=== PATIENT | female | born 1990 | race Caucasian/White ===

== ENCOUNTER 2020-01-17 10:35 | Emergency (ER) | payer OTHER, SELFPAY ==
[2020-01-17 10:45] VITALS: BP 117/73; PULSE 91; RESP 20; TEMP 38; O2SAT 99
--- NOTE | 2020-01-17 11:52 | ED.URI ---
HPI - URI/Sore Throat General Chief Complaint: Upper Respiratory Infection Stated Complaint: Sore throat Source: patient Mode of arrival: ambulatory Limitations: no limitations History of Present Illness HPI Narrative: Patient is a 29-year-old female who presents with sore throat, fever, body aches x3 days. has positive strep. Patient reports taking rwus-iwj-wkhwpkk medications with limited relief. MD elicited complaint: fever and sore throat Related Data Allergies Allergy/AdvReac Type Severity Reaction Status Date / Time Sulfa (Sulfonamide Allergy Unknown Pruritic Verified 01/17/20 10:54 Antibiotics) rash adhesive AdvReac Intermediate Rash Verified 01/17/20 10:54 Review of Systems Review of Systems: Narrative: CONSTITUTIONAL: Denies fever, chills, or sweats. EYES: Denies visual changes, redness, or discharge. ENT: Denies rhinorrhea, congestion, reports sore throat and right otalgia. CARDIOVASCULAR: Denies chest pain, palpitations, or edema. RESPIRATORY: Denies cough or dyspnea. GASTROINTESTINAL: Denies abdominal pain, nausea, vomiting, or diarrhea. GENITOURINARY: Denies dysuria or hematuria. SKIN: Denies rash or itching. MUSCULOSKELETAL: Denies back pain, joint pain, or myalgia. NEUROLOGIC: Denies headache, numbness, dizziness, or weakness. PSYCHIATRIC: Denies anxiety or depression. [facility] Family History Family History Mother Family history of anemia Father Family history of colonic diverticulitis Other Acute myocardial infarction Carcinoma of colon Cerebrovascular accident Family history of lung cancer Family history of malignant neoplasm of brain Family history of malignant neoplasm of breast Family history of malignant neoplasm of cervix Family history of malignant neoplasm of ovary Social History Social History Smoking status: Former smoker Smoking end date: 11/10/17 Alcohol intake: current Exam Narrative: Exam Narrative: GENERAL: Well-appearing, well-nourished, and in no acute distress. HEAD: Normocephalic, atraumatic. EYES: EOMI. No redness or drainage. Conjunctiva are normal. ENT: Mucous membranes pink and moist. Nares clear. No rhinorrhea. TMs normal bilaterally. Throat erythema and edema, tonsils 2+. Uvula midline. NECK: AROM. Supple. Bilateral cervical lymphadenopathy. CHEST: No respiratory distress. Clear to auscultation. HEART: Regular rate and rhythm. No murmur appreciated. Normal peripheral pulses. EXTREMITIES: Normal range of motion. No edema. SKIN: Warm, dry, no rash. NEURO: No focal deficits. Alert and oriented x3. Gait steady. PSYCH: Normal affect. No signs of depression or anxiety. Course Vital Signs Vital signs: Vital Signs Temperature 38.0 C H 01/17/20 10:45 Pulse Rate 91 01/17/20 10:45 Respiratory Rate 01/17/20 10:45 Blood Pressure 117/73 01/17/20 10:45 Pulse Oximetry 99 01/17/20 10:45 Temperature 38.0 C H 01/17/20 10:45 Pulse Rate 91 01/17/20 10:45 Respiratory Rate 01/17/20 10:45 Blood Pressure 117/73 01/17/20 10:45 Pulse Oximetry 99 01/17/20 10:45 Reviewed. Rapid strep negative MDM - URI/Sore Throat MDM Narrative Medical decision making narrative: Patient's rapid strep was negative, culture to be sent. Discussed plan of care with patient. Patient to be treated with antibiotics due to tonsillitis. Patient aware of plan of care and agrees. Patient is stable for discharge home with outpatient follow-up as discussed. Differential Diagnosis Differential diagnosis: Likely upper respiratory infection, viral infection, pharyngitis and other (Tonsillitis, strep throat) Lab Data Labs: Strep Screen Presumptive Negative *(Reference Range: Negative)* Critical Care Time Critical Care Time Critical Care Time: No Discharge Plan Discharge Clinical Impression: Acute to
== END 2020-01-17 12:03 | disposition home or self-care (01) ==
LOC: EXPTROY 12:17
PROVIDERS: Emergency Provider Nurse Practitioner
DX: J03.90 Acute tonsillitis, unspecified (principal); Z87.891 Personal history of nicotine dependence
CPT/HCPCS: 87081; 87147; 87880; 99213; G0463

== ENCOUNTER 2021-03-16 14:34 | Outpatient (CLI) | payer OTHER, SELFPAY ==
[2021-03-16 14:56] LABS: Hematocrit 41.8 % (37.0-47.0); Hemoglobin 14.1 g/dL (12.0-15.0)
== END 2021-03-16 14:35 | disposition home or self-care (01) ==
LOC: ANHSURGERY 14:38
PROVIDERS: Anesthesiology; PCP Family Medicine; Visit Provider Otolaryngology
DX: Z01.818 Encounter for other preprocedural examination (principal); D64.9 Anemia, unspecified
CPT/HCPCS: 36415; 85014; 85018

== ENCOUNTER → 2021-03-17 02:08 | Outpatient (CLI) | payer OTHER, SELFPAY ==
[2021-03-18 14:52] LABS: SARS-CoV-2 RNA PCR Negative
== END ==
PROVIDERS: PCP Family Medicine; Visit Provider Otolaryngology
DX: Z01.812 Encounter for preprocedural laboratory examination (principal); Z20.822 Contact with and (suspected) exposure to COVID-19
CPT/HCPCS: C9803; U0003; U0005

== ENCOUNTER 2021-03-20 02:08 | Day surgery (SDC) | payer OTHER, SELFPAY ==
[2021-03-13 13:41] VITALS: BMI 40.5
--- NOTE | 2021-03-19 09:12 | PM.IMHP ---
H&P: HPI History of Present Illness Date/Time: 03/19/21 09:12 31-year-old female presents with a significantly firm an asymmetric right tonsil. We have tried antibiotics as well as steroids with no change. Patient's only symptom is mild pain. No other head neck cancer or cancer symptoms for that matter. She presents for tonsillectomy. Chief Complaint: Enlarged right tonsil, asymmetric tonsils, throat pain Review of Systems Constitutional: Constitutional: Denies fatigue, Denies fever(s) and Denies lethargy Eyes: Eyes: Denies blurry vision and Denies change in vision ENT: Reports as per HPI Cardiovascular: Cardiovascular: Denies chest pain Respiratory: Respiratory: Denies cough Endocrine: Endocrine: Denies fatigue Hematologic/Lymphatic: Hematologic/Lymphatic: Denies easy bleeding, Denies easy bruising and Denies lymphadenopathy Allergic/Immunologic: Allergic/Immunologic: Denies seasonal rhinorrhea [facility] Surgical History Surgical History Tubal ligation status Family History Family History Mother Family history of anemia Father Family history of colonic diverticulitis Other Acute myocardial infarction Carcinoma of colon Cerebrovascular accident Family history of lung cancer Family history of malignant neoplasm of brain Family history of malignant neoplasm of breast Family history of malignant neoplasm of cervix Family history of malignant neoplasm of ovary Social History Social History Social History: Smoking packs per day: 0.5 Smoking cigarettes per day: 10.0 Years smoked: 5 Smoking pack-years: 2.50 Smoking status: Current every day smoker Smoking end date: 11/10/17 Additional smoking assessment comments: CURRENTLY 1 CIG/MONTH Alcohol intake: current Drinks per week: 1 Substance use: never Substance use type: does not use Additional living arrangements comments: [facility] Gender identity (if verbalized by the patient): Female Spiritual care concerns: No Meds Home Medications and Allergies Home Medications Medication Instructions Recorded Confirmed Type cyclosporine 0.05 % eye drops in a 1 drp EACH EYE Q12H ea 01/29/21 03/13/21 History dropperette ferrous sulfate [iron] 325 mg PO DAILY 03/13/21 03/13/21 History cagemmdq-agkq-MJ-calcium-mins 1 tablet PO DAILY 03/13/21 03/13/21 History [Daily Multiple For Women] omega 0-hfb-iak-fish oil [Fish Oil] 1 cap PO BID 03/13/21 03/13/21 History potassium 95 mg PO DAILY 03/13/21 03/13/21 History Allergies Allergy/AdvReac Type Severity Reaction Status Date / Time Sulfa (Sulfonamide Allergy Severe Anaphylactic Verified 03/13/21 13:35 Antibiotics) Shock adhesive AdvReac Mild Rash Verified 03/13/21 13:35 Exam Const: General: cooperative, healthy appearing, comfortable, well developed and alert HENMT: Head: normal to inspection, normocephalic and atraumatic Ears: hearing grossly normal bilaterally, external ears normal, TM's normal bilaterally and EAC's normal General nose exam: Normal external nose present, Normal nares present, No nasal polyps present, Normal nasal mucous membranes and turbinates present and Normal septum present Face and sinus: normal facial exam Mouth: Yes Normal oral and palatal mucosa present, Yes lip normal, Yes tongue normal, Yes oropharynx normal and Yes moist mucous membranes Teeth and gingiva: dentition normal and gingiva normal Throat: posterior oropharynx normal, tonisls abnormal ( Right significantly firm enlarged erythematous edematous) and uvula midline Eyes: General: appearance normal, both eyes and all related structures Periorbital: periorbital findings normal Eyelids: eyelids normal Conjunctivae: conjunctivae normal Sclera: sclerae normal Neck: Neck: normal visual inspection, ful
--- NOTE | 2021-03-19 13:48 | WPDANESEPPF ---
Anes - Initial Pre Proc Eval Procedure: Operation Date: 03/20/21 10:00 Proposed Procedures p Tonsillectomy - Bert Tyson MD Date/Time: 03/19/21 13:48 Surgeon: Bert Tyson MD Pre Op Diagnosis: hypertrophic tonsils Patient Data Age: 31 Gender: F Height: 5 ft 6 in Weight: 114 kg Allergies Allergy/AdvReac Type Severity Reaction Status Date / Time Sulfa (Sulfonamide Allergy Severe Anaphylactic Verified 03/20/21 08:23 Antibiotics) Shock adhesive AdvReac Mild Rash Verified 03/20/21 08:23 Home Medications Medication Instructions Recorded Confirmed Type cyclosporine 0.05 % eye drops in a 1 drp EACH EYE Q12H ea 01/29/21 03/20/21 History dropperette ferrous sulfate [iron] 325 mg PO DAILY 03/13/21 03/20/21 History urnftbmg-plhp-LS-calcium-mins 1 tablet PO DAILY 03/13/21 03/20/21 History [Daily Multiple For Women] omega 1-bxc-tjz-fish oil [Fish Oil] 1 cap PO BID 03/13/21 03/20/21 History potassium 95 mg PO DAILY 03/13/21 03/20/21 History Patient hx anesthesia problems: none Family hx anesthesia problems: none PMFSH Past Medical History Medical History (Updated 03/20/21 @ 09:27 by Chris Medrano MD) Anxiety Morbid obesity Surgical History Surgical History Tubal ligation status Family History Family History Mother Family history of anemia Father Family history of colonic diverticulitis Other Acute myocardial infarction Carcinoma of colon Cerebrovascular accident Family history of lung cancer Family history of malignant neoplasm of brain Family history of malignant neoplasm of breast Family history of malignant neoplasm of cervix Family history of malignant neoplasm of ovary Social History Social History Social History: Smoking packs per day: 0.5 Smoking cigarettes per day: 10.0 Years smoked: 5 Smoking pack-years: 2.50 Smoking status: Current every day smoker Smoking end date: 11/10/17 Additional smoking assessment comments: CURRENTLY 1 CIG/MONTH Alcohol intake: current Drinks per week: 1 Substance use: never Substance use type: does not use Living arrangements: with family Additional living arrangements comments: [facility] Gender identity (if verbalized by the patient): Female Spiritual care concerns: No Anes - Eval Final PreProcedure Day of Procedure 03/19/21 13:48 Patient weight: morbidly obese Heart: regular rate and rhythm Lungs: clear to auscultation Airway: Mallampati scale class II Neurological: alert and oriented Last oral intake: >/= 8 hours ASA classification: III Emergent: no Anesthetic plan: proceed Anesthesia type and monitoring: general ETT and standard monitoring Informed Consent: The patient's anesthetic plan and its attendant risks and benefits were discussed with the patient/family/POA. Questions were solicited and answers provided to the satisfaction of the patient/family/POA.
[2021-03-20] VITALS (10 sets, daily range): BP systolic 104–133; BP diastolic 58–81; PULSE 60–91; RESP 12–19; TEMP 36.6; O2SAT 96–100
--- NOTE | 2021-03-20 07:17 | WPDHPUPDATE1 ---
History and Physical Update Update Date/Time: 03/20/21 07:17 History and Physical has been reviewed, including an updated exam of the patient. There are NO changes in the patient's condition. Risks, benefits, and alternatives have been discussed and questions answered. Patient agrees to proceed with procedure.
[2021-03-20] MEDS: LACTATED RINGERS 1,000 ML 30 ML IV CONT ×2 (08:13→11:10)
[2021-03-20] MEDS: ACETAMINOPHEN 500 MG TABLET 1000 MG PO (08:14)
--- NOTE | 2021-03-20 11:49 | PM.PROC ---
Procedure Note - Detailed Date of procedure: 03/20/21 Pre-op diagnosis: hypertrophic tonsils Asymmetric right tonsil Post-op diagnosis: same Procedure performed: Tonsillectomy Description of procedure: The patient was correctly identified and consent was verified in the preoperative holding area. The patient was then brought to the operating room and a time-out was performed. General anesthesia was induced and endotracheal tube was secured the patient's airway in the midline. Patient was then prepped and draped for the aforementioned procedure. McIvor mouth gag was inserted into the oral cavity and opened revealing tonsils which were asymmetric, with the right being much larger in firmer than the left. The right tonsil was grasped with a curved Allis and dissected in extracapsular plane. Hemostasis was achieved using the intermittent Bovie electrocautery suction at a setting of 15. Standard Bovie was utilized at a setting of 8 in the very low technique. Similar procedure was performed on the left side. Hemostasis was also excellent. Of note the patient had a right tonsil which was filled with tonsil stones as well as purulence. The McIvor mouth gag was then lowered and open 30 seconds later to reveal tonsil postoperative regions which were not bleeding. Care the patient was turned over to Anesthesiology. I performed all dictated portions of the procedure. Anesthesia: GETA Surgeon: Bert Tyson MD Estimated blood loss (mL): 20 Drains: No Packing: No Pathology: yes Complications: No immediate complications Condition: stable Disposition: PACU Findings: Asymmetric tonsils right greater than left right tonsil with tonsilliths as well as purulence
[2021-03-20] MEDS: fentaNYL CITRATE INJ (*CRX) 100 MCG/2 ML VIAL 25 MCG IV PUSH ×2 (12:05→12:07)
[2021-03-20] MEDS: oxyCODONE (*CRX) 5 MG/5 ML ORAL SOLN IR PO (12:37)
== END 2021-03-20 13:25 | disposition home or self-care (01) ==
PROVIDERS: PCP Family Medicine; Visit Provider Otolaryngology
PROC: (CPT 42826; principal; 2021-03-20 10:00)
DX: J35.01 Chronic tonsillitis (principal); E66.01 Morbid (severe) obesity due to excess calories; Z68.39 Body mass index [BMI] 39.0-39.9, adult; F17.210 Nicotine dependence, cigarettes, uncomplicated
CPT/HCPCS: 42826; 36415; 85014; 85018; 88304; 88333; A9270; C9803; J0330; J1100; J2250; J2405; J2704; J3010; J7120; U0003; U0005

== ENCOUNTER 2022-03-05 13:57 | Outpatient (CLI) | payer OTHER, SELFPAY ==
--- NOTE | ~2022-03-05 | US_ITS ---
EXAMINATION: US pelvic complete DATE: 03/05/2022 15:08 INDICATION: Oligomenorrhea, unspecified TECHNIQUE: Multiple transabdominal sonographic images of the pelvis were obtained. COMPARISON: None. FINDINGS: The uterus measures 8.7 x 4.0 x 3.3 cm. The endometrial complex measures 5 mm. The right ov byron measures 4.3 x 3.8 x 3.1 cm. The left ovary measures 3.5 x 3.5 x 2.7 cm. There is normal vascular flow in the ovaries. There is no free fluid in the pelvis. IMPRESSION: 1. No sonographic correlate for the patient's symptoms. Reviewed, dictated and finalized at location F.
== END 2022-03-05 13:58 | disposition home or self-care (01) ==
LOC: ANHIMG 14:01
PROVIDERS: PCP Family Medicine; Visit Provider Family Medicine
DX: N91.5 Oligomenorrhea, unspecified (principal)
CPT/HCPCS: 76856

== ENCOUNTER 2022-06-12 11:17 | Day surgery (SDC) | payer OTHER, SELFPAY ==
[2022-06-12] VITALS (11 sets, daily range): BP systolic 113–139; BP diastolic 66–81; PULSE 46–56; RESP 12–20; TEMP 36.2–36.3; O2SAT 95–100
--- NOTE | ~2022-06-12 | XR_ITS ---
EXAMINATION: XR cholangiogram surg 1st inj DATE: 06/12/2022 15:30 CDT INDICATION: IOC, stones . TECHNIQUE: 66 fluoroscopic images of the right upper quadrant were obtained during intraoperative cho langiogram performed by the surgeon. I was not present in the operating room. Fluoroscopy exposure ti me was 48.9 seconds. Cumulative dose was 29.61 mGy. COMPARISON: Ultrasound abdomen, same date. FINDINGS: Cine images demonstrate filling of normal-appearing intra and extrahepatic biliary ducts. Mild contra st extravasation about the free edge of the liver. Small gas bubble within the cystic duct. No residu al stone. No evidence of procedure related complication. IMPRESSION: Fluoroscopic documentation of intraoperative cholangiogram. Verbal report given at the time of surger y. Please refer to the operative note for complete procedural details . Reviewed, dictated and finalized at location K. IMPRESSION: Fluoroscopic documentation of intraoperative cholangiogram. Verbal report given at the time of surgery. Please refer to the operative note for complete proced ural details .
--- NOTE | ~2022-06-12 | US_ITS ---
EXAMINATION: US abdomen limited DATE: 06/12/2022 13:17 INDICATION: Abdominal pain TECHNIQUE: Multiple grayscale and Doppler ultrasound images of the abdomen were obtained. COMPARISON: None FINDINGS: The pancreatic head and body are normal in appearance. The pancreatic tail is not visualized. Visual ized proximal abdominal aorta and inferior vena cava are normal. Liver has normal contour, with a smo oth surface. There is increased parenchymal echogenicity and coarsened echotexture consistent with di ffuse hepatic steatosis. Small region of hypoechoic focal fatty sparing along the gallbladder fossa. No intrahepatic biliary duct dilation suspected. Portal venous flow was seen in the hepatopetal, nor mal direction and has normal Doppler waveform. The gallbladder is normal in appearance. There is no cholelithiasis. The common bile duct measures 7 mm, which is mild dilated. The distal common bile kolby t is obscured. Sonographic Mendoza sign was reported as positive by the principal electrical engineer. IMPRESSION: 1. Positive sonographic Mendoza sign but with normal-appearing gallbladder with no wall thickening or evident cholelithiasis. If there is high clinical concern for acute cholecystitis could consider HIDA scan for further evaluation. 2. Mild dilation of the common bile duct to 7 mm without intrahepatic biliary ductal dilation. The di stal common bile duct is obscured and would correlate with liver function tests. If findings are conc erning for biliary obstruction would consider MRI/MRCP for further evaluation. 3. Diffuse hepatic steatosis with focal sparing along the gallbladder fossa. Reviewed, dictated and finalized at location A. IMPRESSION: 1. Positive sonographic Mendoza sign but with normal-appearing gallbladder with no wall thickening or evident cholelithiasis. If there is high clinical concern for acute cholecystitis could consider HIDA scan for further evaluation. 2. Mild dilation of the common bile duct to 7 mm without intrahepatic biliary d uctal dilation. The distal common bile duct is obscured and would correlate wit h liver function tests. If findings are concerning for biliary obstruction woul d consider MRI/MRCP for further evaluation. 3. Diffuse hepatic steatosis with focal sparing along the gallbladder fossa.
[2022-06-12 11:59] LABS: Basophils Percent Auto 0.5 % (0.2-1.2); Eosinophils Absolute Auto 0.1 K/mm3 (0-0.3); Eosinophils Percent Auto 1.3 % (0-4.4); Hematocrit 42.5 % (37.0-47.0); Hemoglobin 14.5 g/dL (12.0-15.0); Immature Granulocyte Absolute 0.02 K/mm3 (0.00-0.031); Immature Granulocyte Percent A 0.3 % (0-0.5); Lymphocytes Absolute Auto 1.84 K/mm3 (0.9-3.2); Lymphocytes Percent Auto 24.4 % (18.3-44.2); Mean Corpuscular HGB Conc 34.1 g/dl (32-36); Mean Corpuscular Hemoglobin 28.9 pg (26-34); Mean Corpuscular Volume 84.8 fl (80-100); Monocytes Absolute Auto 0.5 K/mm3 (0.1-0.6); Monocytes Percent Auto 6.5 % (2.6-8.5); Platelet Count Result 268 k/mm3 (150-375); Red Blood Count 5.01 M/mm3 (4.2-5.4); Red Cell Distribution Width 12.4 % (11.5-14.5); White Blood Count 7.5 K/mm3 (4.5-10.0)
[2022-06-12 12:12] LABS: Alanine Aminotransferase 467 U/L (6-35); Albumin Level 4.8 g/dL (3.5-5.1); Alkaline Phosphatase 128 U/L (38-126); Anion Gap 12 mmol/L (8-16); Aspartate Amino Transferase 513 U/L (14-36); Bilirubin,Total 2.6 mg/dL (0.2-1.3); Blood Urea Nitrogen 14 mg/dL (7-17); Calcium 9.3 mg/dL (8.4-10.2); Carbon Dioxide 23 mmol/L (22-30); Chloride 103 mmol/L (98-107); Estimated CRCL calculation 113 ml/min; Estimated Glomerular Filt Rate > 60; Glucose 116 mg/dL (65-110); Lipase 95 U/L (23-300); Potassium 3.6 mmol/L (3.4-5.0); Sodium 138 mmol/L (137-145)
[2022-06-12] MEDS: SODIUM CHLORIDE 0.9% IV 1,000 ML 999 ML IV CONT (13:14)
[2022-06-12] MEDS: KETOROLAC 30 MG/ML VIAL (*BKC) IV PUSH (13:14)
--- NOTE | 2022-06-12 13:30 | ED.ABDPAIN ---
HPI - Abdominal Pain General Chief Complaint: Abdominal Pain Stated Complaint: abd pain Time Seen by Provider: 06/12/22 11:37 Source: RN notes reviewed History of Present Illness HPI narrative: Patient presents emergency department from home for abdominal pain. Patient states pain is been ongoing for approximately 1 day. The pain is located in the upper abdomen and in the right side of the abdomen described as aching in nature states has been associated with nausea and vomiting but states no nausea at this time. She denies any fevers or chills chest pain shortness of breath diarrhea or any other symptoms states she not taking thing for the pain today the patient was seen by her PCP and was sent to the ER for further Related Data Home Medications Medication Instructions Recorded Confirmed cyclosporine 0.05 % eye drops in a 1 drp EACH EYE Q12H 01/29/21 06/12/22 dropperette (Restasis) multivit-iron 18 mg-folic acid 400 1 tablet PO DAILY 03/13/21 06/12/22 mcg-calcium 500 mg-minerals tablet (Daily Multiple For Women) omega 1-zqi-lhl-fish oil 1,200 mg 1 cap PO BID 03/13/21 06/12/22 (144 mg-216 mg) capsule (Fish Oil) potassium 95 mg tablet 95 mg PO DAILY 03/13/21 06/12/22 Allergies Allergy/AdvReac Type Severity Reaction Status Date / Time Sulfa (Sulfonamide Allergy Severe Anaphylactic Verified 06/12/22 10:39 Antibiotics) Shock adhesive AdvReac Mild Rash Verified 06/12/22 10:39 Review of Systems Review of Systems: Gen.: Denies fevers or chills ENT: Denies congestion Respiratory: Denies shortness of breath or cough CV: Denies chest pain or palpitations GI: See HPI Musculoskeletal: Denies back pain or muscle pain Neuro: Denies numbness, tingling, weakness or focal weakness Skin: Denies rash Except as documented, all other systems reviewed and negative [facility] Past Medical History Medical History Anxiety Morbid obesity Surgical History Surgical History S/P tonsillectomy 0 03/2021 Tubal ligation status Family History Family History Mother Family history of anemia Father Family history of colonic diverticulitis Other Acute myocardial infarction Carcinoma of colon Cerebrovascular accident Family history of lung cancer Family history of malignant neoplasm of brain Family history of malignant neoplasm of breast Family history of malignant neoplasm of cervix Family history of malignant neoplasm of ovary Social History Social History Social History: Years smoked: 5 Smoking status: Former smoker Tobacco type: cigarettes Second hand tobacco smoke exposure: No Smoking end date: 11/10/17 Additional smoking assessment comments: CURRENTLY 1-2 CIG/MONTH Alcohol intake: current Alcohol use details: Socially Substance use: never Substance use type: does not use Gender identity (if verbalized by the patient): Female Sexual Orientation (if Verbalized by the Patient): Straight or Heterosexual Spiritual care concerns: No Exam Narrative: APPEARANCE: No acute distress, nontoxic, resting in bed HEENT: Normocephalic, atraumatic, OMM RESPIRATORY: No respiratory distress, clear to auscultation bilaterally with no rhonchi wheezing or rales CARDIOVASCULAR: RRR s murmur ABDOMINAL: Soft nondistended tender palpation in epigastric and right upper quadrant no tenderness left upper quadrant, left lower quadrant and right lower quadrant no rebound or guarding MUSCULOSKELETAl: Moves all extremities. No clubbing, cyanosis or edema. NEURO: Awake and alert. Following commands, speech normal, no focal deficits SKIN:: Warm, dry. Normal Color PSYCHIATRIC: Normal affect/mood Course Course Emergency Course: Discussed with Dr. Zelaya presentation work-up we will plan
--- NOTE | 2022-06-12 14:39 | WPDANESEPPF ---
Anes - Initial Pre Proc Eval Procedure: Operation Date: 06/12/22 15:00 Proposed Procedures p Laparoscopic Cholecystectomy - Edgardo Zelaya MD Date/Time: 06/12/22 14:39 Surgeon: Edgardo Zelaya MD Pre Op Diagnosis: abd pain Patient Data Age: 32 Gender: F Height: 1.68 m Weight: 113.4 kg Allergies Allergy/AdvReac Type Severity Reaction Status Date / Time Sulfa (Sulfonamide Allergy Severe Anaphylactic Verified 06/12/22 10:39 Antibiotics) Shock adhesive AdvReac Mild Rash Verified 06/12/22 10:39 Home Medications Medication Instructions Recorded Confirmed Type cyclosporine 0.05 % eye drops in a 1 drp EACH EYE Q12H 01/29/21 06/12/22 History dropperette (Restasis) multivit-iron 18 mg-folic acid 400 1 tablet PO DAILY 03/13/21 06/12/22 History mcg-calcium 500 mg-minerals tablet (Daily Multiple For Women) omega 4-ryk-wfv-fish oil 1,200 mg 1 cap PO BID 03/13/21 06/12/22 History (144 mg-216 mg) capsule (Fish Oil) potassium 95 mg tablet 95 mg PO DAILY 03/13/21 06/12/22 History triamcinolone acetonide 0.1 % 1 applic topical BID #30 grams 02/14/22 06/12/22 Rx topical cream Laboratory Tests 06/12/22 06/12/22 11:51 11:51 WBC 7.5 K/mm3 K/mm3 (4.5-10.0) RBC 5.01 M/mm3 M/mm3 (4.2-5.4) Hgb 14.5 g/dL g/dL (12.0-15.0) Hct 42.5 % % (37.0-47.0) MCV 84.8 fl fl (80-100) MCH 28.9 pg pg (26-34) MCHC 34.1 g/dl g/dl (32-36) RDW 12.4 % % (11.5-14.5) Plt Count 268 k/mm3 k/mm3 (150-375) MPV 9.0 fl fl (7.4-10.4) Immature Gran % (Auto) 0.3 % % (0-0.5) Neut % (Auto) 67.0 % % (45.5-73.1) Lymph % (Auto) 24.4 % % (18.3-44.2) [place] % (Auto) 6.5 % % (2.6-8.5) Eos % (Auto) 1.3 % % (0-4.4) Baso % (Auto) 0.5 % % (0.2-1.2) Lymph # (Auto) 1.84 K/mm3 K/mm3 (0.9-3.2) [place] # (Auto) 0.5 K/mm3 K/mm3 (0.1-0.6) Eos # (Auto) 0.1 K/mm3 K/mm3 (0-0.3) Baso # (Auto) 0.0 K/mm3 K/mm3 (0.0-0.1) Abs Immat Gran (auto) 0.02 K/mm3 K/mm3 (0.00-0.031) Absolute Neuts (auto) 5.0 K/mm3 K/mm3 (1.3-6.7) Absolute Nucleated RBC 0.0 K/mm3 K/mm3 (0.0-0.012) Nucleated RBC % 0.0 % % (0.0-0.2) Sodium 138 mmol/L mmol/L (137-145) Potassium 3.6 mmol/L mmol/L (3.4-5.0) Chloride 103 mmol/L mmol/L (98-107) Carbon Dioxide 23 mmol/L mmol/L (22-30) Anion Gap 12 mmol/L mmol/L (8-16) BUN 14 mg/dL mg/dL (7-17) Creatinine 0.80 mg/dL mg/dL (0.7-1.0) Estim Creat Clear Calc 113 ml/min ml/min Estimated GFR > 60 (59 - ) Glucose 116 mg/dL H mg/dL (65-110) Calcium 9.3 mg/dL mg/dL (8.4-10.2) Total Bilirubin 2.6 mg/dL H mg/dL (0.2-1.3) AST 513 U/L H U/L (14-36) ALT 467 U/L H U/L (6-35) Alkaline Phosphatase 128 U/L H U/L (38-126) Total Protein 8.0 g/dL g/dL (6.3-8.2) Albumin 4.8 g/dL g/dL (3.5-5.1) Lipase 95 U/L U/L (23-300) Patient hx anesthesia problems: none Family hx anesthesia problems: none Results Review: All pre-operative results and documents have been reviewed as part of the pre-operative evaluation. [facility] Past Medical History Medical History Anxiety Morbid obesity Surgical History Surgical History S/P tonsillectomy 0 03/2021 Tubal ligation status Family History Family History Mother Family history of anemia Father Family history of colonic diverticulitis Other Acute myocardial infarction Carcinoma of colon Cerebrovascular accident Family history of lung cancer Family history of malignant neoplasm of brain Family history of malignant neoplasm of breast Family history of malignant neoplasm of cervix
--- NOTE | 2022-06-12 14:41 | PM.IMHP ---
H&P: HPI History of Present Illness Date/Time: 06/12/22 14:41 Chief Complaint: Right upper quadrant pain Narrative: Patient is a 32-year-old woman who has had severe right upper quadrant abdominal pain. This came on after eating an omelet. She has also had several episodes of vomiting. She was seen in her primary care provider's office and found to have tenderness in severe pain. She was sent to the emergency room. In the emergency room she was noted to have tenderness in the right upper quadrant and a normal white count. However her liver enzymes were diffusely elevated. Serum lipase was normal. She had an ultrasound of the right upper quadrant which showed a 7 mm common bile duct gallstones and a positive Mendoza sign. She is taken to surgery now for laparoscopic cholecystectomy with intraoperative cholangiogram. Review of Systems Review of Systems: All systems reviewed & are unremarkable except as noted in HPI and below (HPI and those items noted below) Constitutional: Constitutional: Denies chills and Denies fever(s) Cardiovascular: Cardiovascular: Denies chest pain, Denies diaphoresis, Denies dyspnea and Denies paroxysmal nocturnal dyspnea Respiratory: Respiratory: Denies chest congestion, Denies cough and Denies dyspnea Integumentary/Breasts: Skin/Breast: Denies lesions and Denies rash PMFSH Past Medical History Medical History Anxiety Morbid obesity Surgical History Surgical History S/P tonsillectomy 0 03/2021 Tubal ligation status Family History Family History Mother Family history of anemia Father Family history of colonic diverticulitis Other Acute myocardial infarction Carcinoma of colon Cerebrovascular accident Family history of lung cancer Family history of malignant neoplasm of brain Family history of malignant neoplasm of breast Family history of malignant neoplasm of cervix Family history of malignant neoplasm of ovary Social History Social History Social History: Years smoked: 5 Smoking status: Former smoker Tobacco type: cigarettes Second hand tobacco smoke exposure: No Smoking end date: 11/10/17 Additional smoking assessment comments: CURRENTLY 1-2 CIG/MONTH Alcohol intake: current Alcohol use details: Socially Substance use: never Substance use type: does not use Gender identity (if verbalized by the patient): Female Sexual Orientation (if Verbalized by the Patient): Straight or Heterosexual Spiritual care concerns: No Meds Home Medications and Allergies Home Medications Medication Instructions Recorded Confirmed Type No Home Medications 06/12/22 06/12/22 History Allergies Allergy/AdvReac Type Severity Reaction Status Date / Time Sulfa (Sulfonamide Allergy Severe Anaphylactic Verified 06/12/22 14:57 Antibiotics) Shock adhesive AdvReac Mild Rash Verified 06/12/22 14:57 Exam Const: General: cooperative, no acute distress, alert, awake, anxious and uncomfortable Nutritional Appearance: obese Orientation/consciousness: No confusion HENMT: Head: normocephalic and atraumatic Mouth: Yes Normal oral and palatal mucosa present Eyes: Conjunctivae: conjunctivae normal Pupils: Equal, round and reactive pupils present EOM: EOMs intact bilaterally Neck: Neck: normal visual inspection, no lymphadenopathy and nontender Resp: Effort & Inspection: normal respiratory effort Auscultation: clear to auscultation bilaterally Cardio: Rate: regular rate Rhythm: regular rhythm Heart sounds: no gallops, no murmurs and no rubs GI: Inspection: non-distended, obesity and no visible herniation GI Palp: Yes Soft to palpation, Yes Tenderness to palpation present (GI) (Right upper quadrant with guarding), Yes Guarding
[2022-06-12] MEDS: LACTATED RINGERS 1,000 ML 30 ML IV CONT ×2 (14:45→17:47)
[2022-06-12] MEDS: SCOPOLAMINE 1.5 MG PATCH TRANSDERM (15:09)
--- NOTE | 2022-06-12 15:21 | WPDHPUPDATE1 ---
History and Physical Update Update Date/Time: 06/12/22 15:21 History and Physical has been reviewed, including an updated exam of the patient. There are NO changes in the patient's condition. Risks, benefits, and alternatives have been discussed and questions answered. Patient agrees to proceed with procedure.
[2022-06-12] MEDS: BUPIVACAINE/EPINEPHRINE 0.25% 50 ML VIAL INFILTRATE (16:08)
--- NOTE | 2022-06-12 16:46 | P.OP_ITS ---
Procedure Note - Detailed Date of Procedure 06/12/22 Pre-op Diagnosis Cholelithiasis with acute cholecystitis, abnormal LFTs Post-op Diagnosis Same Procedure Performed Laparoscopic cholecystectomy with intraoperative cholangiogram Surgeon Edgardo Zelaya MD Coverage Specialist Tiff GERMAIN Anesthesia General and Local (0.25% bupivacaine with epinephrine) Indications Patient is a 32-year-old woman who developed severe right upper quadrant abdominal pain after eating an omelet yesterday. The pain has been persistent. She came to the emergency room and was noted to have tenderness in the right upper quadrant. Her liver enzymes were elevated and lipase was normal. Her white blood cell count was normal. Ultrasound showed gallstones and a positive sonographic Mendoza sign. Common bile duct was 7 mm in diameter. Patient is taken to surgery now for laparoscopic cholecystectomy for acute cholecystitis. The abnormal LFTs are likely due to the cholecystitis but intraoperative cholangiogram will be performed. Findings Acute inflammation, numerous gallstones. No liver abnormalities. No biliary ductal dilatation. Intraoperative cholangiogram was negative. Description of Procedure The patient was taken to surgery and induced into general anesthesia. The abdomen is prepped and draped. Trocars were placed in usual fashion using applied Medical optical trocars and local anesthetic. The gallbladder was freed from adhesions. A laparoscopic aspirator was then used and the gallbladder was decompressed. A Vicryl endoloop was used to close the cholecystotomy. The gallbladder was then retracted anterosuperiorly. Traction was placed on the infundibulum. Dissection was carried out in the cholecystohepatic triangle. There was a lot of edema and hypervascularity consistent with acute inflammation. The cystic duct and cystic artery were dissected out very clearly. The gallbladder was dissected off the liver at its lower 3rd. Critical view was achieved. I securely clipped and divided the cystic artery. A clip was placed on the proximal cystic duct. The cystic duct scissors were then used to make a small opening in the proximal cystic duct. Cholangiogram catheter was then threaded into the cystic duct. C-arm fluoroscopy was brought into the field. Cine fluoroscopy was used and cholangiogram was performed. Cholangiogram was negative as noted above. The cystic duct was then clipped and divided. We dissected the gallbladder free of its attachments to the liver. Once it was completely freed, it was placed in an Endo-Catch bag. It was extricated from the abdomen through the epigastric trocar site. We then replaced the epigastric trocar and reviewed the right upper quadrant. There was no evidence of bleeding or bile leakage. We evacuated CO2 and removed the trocar sleeves. Skin wounds were closed with subcuticular 4-0 Monocryl skin suture. The wounds were dressed with Exofin surgical adhesive. Patient was awakened and taken to recovery in good condition. Sponge needle counts were correct x2. Estimated Blood Loss -5 Drains No Packing No Pathology Yes (Gallbladder) Complications No immediate complications Condition Stable Disposition PACU [facility] Billing Surgery - Charge Forward: Surgery Billing (Laparoscopic cholecystectomy with intraoperative cholangiogram)
--- NOTE | 2022-06-12 16:52 | PM.DS ---
DS: Admitting Diagnosis Discharge Date 06/12/2022 Admitting Diagnosis Cholelithiasis with acute cholecystitis Abnormal liver function tests DS: Discharge Diagnosis Discharge Diagnosis (1) Cholelithiasis and acute cholecystitis with obstruction: Code(s): K80.01 - Calculus of gallbladder with acute cholecystitis with obstruction Status: Acute (2) Elevated LFTs: Code(s): R79.89 - Other specified abnormal findings of blood chemistry Status: Acute DS: Summary Hospital Course Hospital Course: Patient came to the emergency room with right upper quadrant abdominal pain and tenderness. Ultrasound showed gallstones and positive Mendoza sign. Her LFTs were elevated. She was taken to surgery and underwent laparoscopic cholecystectomy with intraoperative cholangiogram. The cholangiogram was negative for any common bile duct stones. The abnormal LFTs are felt to be due to the cholecystitis. Laparoscopic cholecystectomy was completed without difficulty. Patient was able to be discharged after appeared of observation. Status at Discharge Functional status at discharge: independent ambulation Overall status at discharge: patient is progressing back to baseline Time Spent with Patient Time attestation: Total time spent providing and/or coordinating discharge services: Time spent: Less than 30 minutes DS: Data Data Completed and Pending Pending studies at discharge: Pending at discharge 06/12/22 16:26 Surgical [PTH] Routine Labs on day of discharge: Labs from last 24 hours 06/12/22 06/12/22 11:51 11:51 WBC 7.5 RBC 5.01 Hgb 14.5 Hct 42.5 MCV 84.8 MCH 28.9 MCHC 34.1 RDW 12.4 Plt Count 268 MPV 9.0 Immature Gran % (Auto) 0.3 Neut % (Auto) 67.0 Lymph % (Auto) 24.4 [place] % (Auto) 6.5 Eos % (Auto) 1.3 Baso % (Auto) 0.5 Lymph # (Auto) 1.84 [place] # (Auto) 0.5 Eos # (Auto) 0.1 Baso # (Auto) 0.0 Abs Immat Gran (auto) 0.02 Absolute Neuts (auto) 5.0 Absolute Nucleated RBC 0.0 Nucleated RBC % 0.0 Sodium 138 Potassium 3.6 Chloride 103 Carbon Dioxide 23 Anion Gap 12 BUN 14 Creatinine 0.80 Estim Creat Clear Calc 113 Estimated GFR > 60 Glucose 116 H Calcium 9.3 Total Bilirubin 2.6 H AST 513 H ALT 467 H Alkaline Phosphatase 128 H Total Protein 8.0 Albumin 4.8 Lipase 95 Discharge Plan Discharge Patient Disposition: Home, Self-Care Discharge Instructions: 1. May shower the day after surgery over incisions. 2. Call office for: -Wound increasingly painful or bleeding -Vomiting -Fever of greater than 101 degrees 3. Expect some blood on dressing and old blood on skin. 4. If no bowel movement for three days, take 1 oz. (30 ml) Milk of Magnesia, if no results, take Fleets enema. 5. No heavy lifting > 15-20 pounds for 2 weeks. 6. No driving for 3 days or while taking narcotic pain medications. 7. Up walking 10-30 minutes three times per day. 8. Resume previous home medications. 9. Follow-up 10-14 days in office for wound check or as previously scheduled. 10. Oral pain medications prescription to be sent home with patient. 11. NUTRITION: Start out by drinking fluids and increase your diet as tolerated. If you experience nausea, try dry toast, crackers, and 7-UP. If nausea or vomiting persists, contact your surgeon?s office. Patient Instructions: Antibiotic Form Stand Alone Forms: General Discharge Instructions Follow-up/Referrals: Edgardo Zelaya MD [Physician] - 2 Weeks (Call Dr. Rosario office for appointment) Discharge Medications: New hydrocodone-acetaminophen 5-325 mg tablet 1 - 2 tablet PO Q6H PRN (Reason: pain) Qty: 10 0RF ketorolac 10 mg tablet 10 mg PO Q6H 4 Days Qty: 16 0RF
[2022-06-12] MEDS: ONDANSETRON INJ 4 MG/2 ML VIAL IV PUSH (17:06)
[2022-06-12] MEDS: diphenhydrAMINE HCl INJ 50 MG/ML VIAL 25 MG IV PUSH (17:31)
--- NOTE | 2022-06-12 17:37 | SUR.PHASEI ---
Simple mask removed at [id number].
[2022-06-12] MEDS: fentaNYL CITRATE INJ (*CRX) 100 MCG/2 ML VIAL 25 MCG IV PUSH (17:54)
== END 2022-06-12 19:48 | disposition home or self-care (01) ==
LOC: ANHED 14:19 → ANHSURGERY 14:30
PROVIDERS: Physician Assistant; Emergency Provider Emergency Medicine; PCP Family Medicine; Visit Provider Surgery
PROC: 0FT44ZZ Resection of Gallbladder, Percutaneous Endoscopic Approach (ICD-10-PCS; CPT 47562; principal; 2022-06-12 15:00)
DX: K80.10 Calculus of gallbladder with chronic cholecystitis without obstruction (principal); R79.89 Other specified abnormal findings of blood chemistry; E66.01 Morbid (severe) obesity due to excess calories; Z68.41 Body mass index [BMI] 40.0-44.9, adult; F17.210 Nicotine dependence, cigarettes, uncomplicated
CPT/HCPCS: 47563; 36415; 74300; 76705; 80053; 81025; 83690; 85025; 88304; 96361; 96374; 96375; 99285; A9270; C1713; J0330; J1100; J1170; J1200; J1885; J2250; J2405; J2543; J2704; J3010; J7030; J7120

== ENCOUNTER 2024-04-02 14:06 | Emergency (ER) | payer OTHER, SELFPAY ==
[2024-04-02 14:18] VITALS: BP 107/91; PULSE 88; RESP 16; TEMP 36.3; O2SAT 99
--- NOTE | 2024-04-02 14:36 | ED.URI ---
HPI - URI/Sore Throat General Chief Complaint: Upper Respiratory Infection Stated Complaint: Cold symptoms Time Seen by Provider: 04/02/24 14:25 Source: patient and RN notes reviewed Mode of arrival: ambulatory Limitations: no limitations History of Present Illness HPI Narrative: Patient presents today with a 4 day history of sinus pressure, facial pressure, cough, sore throat, congestion. Denies fever. She has been taking Benadryl, DayQuil, NyQuil with mild relief. No history of asthma or COPD. Related Data Home Medications Medication Instructions Recorded Confirmed escitalopram oxalate 10 mg tablet mg 04/02/24 Allergies Allergy/AdvReac Type Severity Reaction Status Date / Time Sulfa (Sulfonamide Allergy Severe Anaphylactic Verified 10/24/23 09:06 Antibiotics) Shock adhesive AdvReac Mild Rash Verified 10/24/23 09:06 Review of Systems Review of Systems: CONSTITUTIONAL: Denies body aches, fever, chills, or sweats. EYES: Denies visual changes, redness, or discharge. ENT: Denies rhinorrhea, or otalgia.+ congestion, sore throat, sinus pressure CARDIOVASCULAR: Denies chest pain, palpitations, or edema. RESPIRATORY: Denies dyspnea.+ cough GASTROINTESTINAL: Denies abdominal pain, nausea, vomiting, or diarrhea. GENITOURINARY: Denies dysuria or hematuria. SKIN: Denies rash, itching, or wounds. MUSCULOSKELETAL: Denies back pain, joint pain, or myalgia. NEUROLOGIC: Denies headache, numbness, tingling, or weakness. PSYCH: Denies depression or anxiety. [facility] Past Medical History Medical History Anxiety Morbid obesity Surgical History Surgical History Hx laparoscopic cholecystectomy Laparoscopic cholecystectomy with intraoperative cholangiogram 06/12/2022 S/P tonsillectomy 0 03/2021 Tubal ligation status Family History Family History Mother Family history of anemia Father Family history of colonic diverticulitis Other Acute myocardial infarction Carcinoma of colon Cerebrovascular accident Family history of lung cancer Family history of malignant neoplasm of brain Family history of malignant neoplasm of breast Family history of malignant neoplasm of cervix Family history of malignant neoplasm of ovary Social History Social History Social History: Years smoked: 5 Smoking status: Former smoker Tobacco type: cigarettes Second hand tobacco smoke exposure: No Smoking end date: 11/10/17 Additional smoking assessment comments: CURRENTLY 1-2 CIG/MONTH Alcohol intake: current Alcohol use details: Socially Substance use: never Substance use type: does not use Living arrangements: with family Occupation/Education: occupation Gender identity (if verbalized by the patient): Female Sexual Orientation (if Verbalized by the Patient): Straight or Heterosexual Spiritual care concerns: No Comments At time of signature, I have reviewed and agree with nursing past medical, surgical, social and family history unless otherwise noted. Please see nursing chart for further information. There is no relevant family history pertinent to the presenting complaint Exam Narrative: GENERAL: Mildly ill-appearing, well-nourished, and in no acute distress. HEAD: Normocephalic, atraumatic. EYES: EOMI. No redness or drainage. Conjunctivae normal. ENT: Mucous membranes pink and moist. Nares congested. + rhinorrhea. TMs normal bilaterally. Throat normal. Tonsils absent. Uvula midline. NECK: Normal AROM. Supple. No lymphadenopathy. CHEST: No respiratory distress. Clear to auscultation. HEART: Regular rate and rhythm. No murmur appreciated. EXTREMITIES: Normal range of motion. No edema. SKIN: Warm, dry, no rash. Capillary refill
== END 2024-04-02 14:46 | disposition home or self-care (01) ==
PROVIDERS: Emergency Provider Nurse Practitioner; Referring Provider Emergency Medicine
DX: J06.9 Acute upper respiratory infection, unspecified (principal); Z87.891 Personal history of nicotine dependence; F41.9 Anxiety disorder, unspecified
CPT/HCPCS: 99213; G0463

== ENCOUNTER 2025-09-19 15:47 | Emergency (ER) | payer OTHER, SELFPAY ==
--- NOTE | ~2025-09-19 | XR_ITS ---
EXAM/PROCEDURE: XR ribs LT 2V HISTORY: anterior rib pain just below breast COMPARISON: None available. TECHNIQUE: Left rib series FINDINGS: No displaced rib fracture. No gross acute or aggressive bony or soft tissue process seen. IMPRESSION: No displaced left-sided rib fracture. Reviewed, dictated and finalized at location [facility]. [facility] [employer] [employer]
--- OUTSIDE RECORDS SUMMARY | 2025-09-19 15:50 | XMS_ITS | Clinical Summary ---
Author Organization [facility] Address [address] [place] [address] Care Team Providers Care Mortgage Operations Manager Name Role Phone Rosa Pascual NP Primary Care Provider [phone] Allergies Active Allergy Reactions Criticality Noted Date Comments Sulfa Antibiotics Unknown,Anaphylaxis High 9 ALL SULFA DRUGS Tape Rash,Redness Low 04/12/2019 SKIN IRRITATION Medications hydrOXYzine (ATARAX) 10 MG tablet Take 1 tablet (10 mg total) by mouth as needed. Active busPIRone (BUSPAR) 5 MG tablet Take 1 tablet (5 mg total) by mouth 2 (two) times daily. 06/16/2024 Active predniSONE (DELTASONE) 10 mg tabletIndicatio ns:Vestibular neuronitis of both ears 60 mg daily on days 1 through 5, 40 mg on day 6, 30 mg on day 7, 20 mg on day 8, 10 mg on day 9, 5 mg on day 10. 41 tablet 07/07/2024 Active Immunizations Immunization Administration Dates Next Due Influenza Adult (Generic) 10/10/2022 MODERNA COVID-19 (SPANISH INTERPRETER LAURA OG), MRNA, LNP-S, PF, 50 MCG/ 0.25 ML DOSE 12/24/2021 Tdap (Boostrix) 04/12/2019 Family History Medical History Relation Comments Hyperlipidemia Father Skin cancer Father Polycystic ovary syndrome Maternal Aunt Brain cancer Maternal Grandfather Heart Disease Maternal Grandfather Ovarian Cancer Maternal Grandmother Hypertension Mother Heart Disease Paternal Grandfather Prostate Cancer Paternal Grandfather Breast Cancer Paternal Grandmother Cervical cancer Paternal Grandmother Polycystic ovary syndrome Sister Relation Status Comments Father Maternal Aunt Maternal Grandfather Maternal Grandmother Mother Paternal Grandfather Paternal Grandmother Sister Social History Tobacco Use Types Packs/Day Years Used Date Smoking Tobacco: Former Cigarettes 0.5 4 S tarted: 2009 Passive Smoke Exposure: Never Smokeless Tobacco: Never Tobacco Cessation:Counseling Given: No Alcohol Use Standard Drinks/Week Comments Not Currently 0 (1 standard drink = 0.6 oz pur e alcohol) PHQ-2 Answer Date Recorded Patient Health Questionnaire-2 Score 2 05/04/2024 Comments No Sex and Gender Information Value Date Recorded Sex Assigned at Not on file Legal Sex Female 9:27 PM CDT Gender Identity Not on file Sexual Orientation Not on file Last Filed Vital Signs Vital Sign Reading Time Taken Comments Blood Pressure 110/70 07/07/2024 2:42 PM CDT Pulse 93 07/07/2024 2:42 PM CDT Temperature 36.5 C (97.7 F) 07/07/2024 2:42 PM CDT Respiratory Rate 18 07/07/2024 2:42 PM CDT Oxygen Saturation 96% 07/07/2024 2:42 PM CDT Inhaled Oxygen Concentration - - Weight 117.5 kg (259 lb) 07/07/2024 2:42 PM CDT Height 168.9 cm (5' 6.5) 05/04/2024 3:20 PM CDT Body Mass Index 41.18 05/04/2024 3:20 PM CDT Plan of Treatment Health Maintenance Due Date Last Done Comments Hepatitis B Vaccines (1 of 3 - 19+ 3-dose series) 2010 HPV Vaccines (1 - 3-dose SCD M series) 2018 Cervical Cancer Screening Pa p with HPV Testing (Age 30 to 64) Every 5 Years 2021 PHQ-2 (Physician [place]) 11/10/2024 05/04/2024 Annual Physical 05/04/2025 05/04/2024 COVID-19 Vaccine (2024- 6 season) 2025 10/10/2022, 12/24/2021, 01/15/2021 Influenza Adult (#1) 2025 10/10/2022 Cervical Cancer Screening Pa p Smear (Age 30 to 64) Every 3 Years 03/18/2027 03/18/2024 Cervical Cancer Screening wi th HPV 03/18/2027 DTaP, Tdap and Td Vaccines ( 2 - Td or Tdap) 04/12/2029 04/12/2019 Hepatitis C Completed 05/12/2024 Hepatitis A Vaccines Aged Out No long er eligible based on patient's age to complete this topic Meningococcal B Vaccine Aged Out No l onger eligible based on patient's age to complete this topic Meningococcal Vaccine Aged Out No ryan brandi eligible based on patient's age to complete this topic Pneumococcal Vaccine: Pediatrics (0 to 5 Years) and At-Risk Patients (6 to 49 Years) Aged Out No longer eligible b ased on patient's age to complete this topic RSV Immunizations Under 20 Months Aged Out No longer eligible b ased on patient's age to complete this topic Procedures Procedure Name Priority Date/Time Associated Diagnosis Comments HEPATITIS C ANTIBODY W/RFX TO HCV RNA Routine 05/12/2024 7:46 AM CDT Need for hepatitis C screening test OUTSIDE CYTOPATH CERV/VAG INTERPRET (PAP) (SCAN ORDER) 03/18/2024 from Last 3 Months or Most Recently Relevant to Health Maintenance Results * HEPATITIS C ANTIBODY W/RFX TO HCV RNA (05/12/2024 7:46 AM CDT) HEPATITIS C AB NON-REACT TAD NON-REACT TAD [employer] [facility] Comment: HCV antibody was non-reactive. There is no laboratory evidence of HCV infection. In most cases, no further action is required. However, if recent HCV exposure is suspected, a test for HCV RNA (test code 87344) is suggested. For additional information please refer to http://education.Everyone Counts/faq/MVS69y7 (This link is being provided for informational/ educational purposes only.) 05/12/2024 7:46 AM CDT 05/12/2024 7:46 AM CDT Narrative Resulting Agency Comment Performing Organization Information: Site ID: [id number] Name: [id number] Address: [address] [address] Director: Prateek Tavarez MD us Rosaanali Pascual NP LABORATORY Final Res ult [facility] [id number] [id number], * PAP SMEAR (SCAN ORDER) (03/18/2024) 03/18/2024 us [facility] Scanned SCANNING Final Resu lt from Last 3 Months or Most Recently Relevant to Health Maintenance Insurance [facility] Care Teams Mortgage Operations Manager Relationship Specialty Start Date End Date Rosa Pascual NP [address] [place] [address] PCP - General NURSE PRACTITIONER 05/04/24
--- OUTSIDE RECORDS SUMMARY | 2025-09-19 15:50 | XMS_ITS | Encounter Summary ---
Author Organization [facility] Address [address] [place] [address] Care Team Providers Care Technical Laboratory Asst Name Role Phone Rosa Pascual NP Primary Care Provider [phone] Encounter Details Date Type Department Care Team (Late st Contact Info) Description 07/08/2024 [employer] Message Enc [facility] Family Medicine - [place] [phone] [facility] [address] [place], [place] [address], [place] [address] Rosa Pascual NP [address] [place], [place] [phone] Thank you Social History Tobacco Use Types Packs/Day Years Used Date Smoking Tobacco: Former Cigarettes 0.5 4 S tarted: 2009 Passive Smoke Exposure: Never Smokeless Tobacco: Never Alcohol Use Standard Drinks/Week Comments Not Currently 0 (1 standard drink = 0.6 oz pur e alcohol) PHQ-2 Answer Date Recorded Patient Health Questionnaire-2 Score 2 05/04/2024 Comments No Sex and Gender Information Value Date Recorded Sex Assigned at Not on file Legal Sex Female 9:27 PM CDT Gender Identity Not on file Sexual Orientation Not on file documented as of this encounter Plan of Treatment Not on file documented as of this encounter Visit Diagnoses Not on filedocumented in this encounter Additional Health Concerns Assessment Noted Time PHQ-9 Depression Total Score: 12 024 3:24 PM CDT documented as of this encounter Care Teams Technical Laboratory Asst Relationship Specialty Start Date End Date Rosa Pascual NP [address] [place], [place] [id number] PCP - General NURSE PRACTITIONER 05/04/24 documented as of this encounter
[2025-09-19 15:56] VITALS: BP 119/66; PULSE 66; RESP 14; TEMP 36.7; O2SAT 100
--- NOTE | 2025-09-19 16:12 | ED_ITS ---
HPI - Chest Pain General Chief Complaint: Extremity Problem,Nontraumatic Stated Complaint: LT Rib Pain Time Seen by Provider: 09/19/25 16:05 Source: patient Mode of arrival: ambulatory Limitations: no limitations History of Present Illness HPI narrative: Carole is a 35-year-old female patient presenting to the clinic today with complaints of left-sided rib pain. She reports she had a massage on Friday and woke up work on Friday morning and was having left rib pain-muscle spasms. Thinks she may have a cracked rib. Denies having any pain during the massage. Denies any chest pain or shortness of breath. Reports that the pain is worse with movement-bending. Has not taken anything for her symptoms. Rates pain a 2/10 currently but when it worsens it is a 6/10. Related Data Home Medications ?Medication ?Instructions ?Recorded ?Confirmed ?Last Taken ?Type escitalopram oxalate 10 mg tablet mg 04/02/24 Unknown History buspirone 5 mg tablet mg 09/19/25 Unknown History spironolactone 100 mg tablet mg 09/19/25 Unknown Hist ory Allergies Allergy/AdvReac Type Severity Reaction Status Date / Time Sulfa (Sulfonamide Allergy Severe Anaphylactic Verified 09/19/25 15:56 Antibiotics) Shock adhesive AdvReac Mild Rash Verified 09/19/25 15:56 Review of Systems Review of Systems: Pertinent positives per HPI. Patient denies any fever, chills, rash, headache, visual changes, dizziness, cough, runny nose, sore throat, shortness of breath, chest pain, palpitations, nausea, vomiting, diarrhea, constipation, abdominal pain, or any urinary issues. [facility] Past Medical History Medical History Anxiety Morbid obesity Surgical History Surgical History Hx laparoscopic cholecystectomy Laparoscopic cholecystectomy with intraoperative cholangiogram 06/12/2022 S/P tonsillectomy 0 03/2021 Tubal ligation status Family History Family History Mother Family history of anemia Father Family history of colonic diverticulitis Other Acute myocardial infarction Carcinoma of colon Cerebrovascular accident Family history of lung cancer Family history of malignant neoplasm of brain Family history of malignant neoplasm of breast Family history of malignant neoplasm of cervix Family history of malignant neoplasm of ovary Social History Social History Social History: Years smoked: 5 Tobacco type: cigarettes Second hand tobacco smoke exposure: No Smoking end date: 11/10/17 Additional smoking assessment comments: CURRENTLY 1-2 CIG/MONTH Alcohol intake: current Alcohol use details: Socially Substance use: never Substance use type: does not use Living arrangements: with family Occupation/Education: occupation Gender identity (if verbalized by the patient): Female Sexual Orientation (if Verbalized by the Patient): Straight or Heterosexual Spiritual care concerns: No Comments At the time of my signature, I reviewed and agree with the nursing past medical, surgical, social, and family history. There is no relevant family history pertinent to the patient complaint. Exam Narrative: General: Well-developed, well nourished, in no apparent distress Head: Normocephalic, atraumatic. Cardio: Regular rate and rhythm, s1 and s2 normal, no murmur appreciated. Resp: Clear to auscultation bilaterally, no rhonchi, rales, wheezing or rubs. Musculoskeletal: No deformity, tender to palpation over the left lower anterior ribs/chest wall just below the left breast, grossly normal range of motion, muscle strength strong and equal, peripheral pulse strong, no edema, no cyanosis, normal gait and station Course Course Emergency Course: Portions of this record may have been created with voice recognition software. Level of Care: Express Care Visit Vital Signs Vital signs: Vital Signs Temperature 36.7 C 09/19/25 15:56 Pulse Rate 66 09/19/25 15:56 Respiratory Rate 14 09/19/25 15:56 Blood Pressure 119/66 09/19/25 15:56 Pulse Oximetry 100 09/19/25 15:56 Oxygen Delivery Room Air 09/19/25 15:56 Temperature 36.7 C 09/19/25 15:56 Pulse Rate 66 09/19/25 15:56 Respiratory Rate 14 09/19/25 15:56 Blood Pressure 119/66 09/19/25 15:56 Pulse Oximetry 100 09/19/25 15:56 Oxygen Delivery Room Air 09/19/25 15:56 Vital signs reviewed MDM - Chest Pain MDM Narrative Medical decision making narrative: At the time of visit patient is resting comfortably on the exam table. Patient appears to be nontoxic. complaints of left-sided rib pain. She reports she had a massage on Friday and woke up work on Friday morning and was having left rib pain-muscle spasms. Thinks she may have a cracked rib. Denies having any pain during the massage. Denies any chest pain or shortness of breath. Reports that the pain is worse with movement-bending. Has not taken anything for her symptoms. Rates pain a 2/10 currently but when it worsens it is a 6/10. On exam no bruising or swelling visualized, tender to palpation over the left lower anterior ribs/chest wall just below the left breast. X-ray of the left ribs was performed. Diagnostics: X-ray of the left ribs is negative for any sign of fracture or malalignment. Plan: I suspect patient has chest wall/muscle pain. Prescription for naproxen and baclofen was sent to the pharmacy. Supportive measures were discussed with the patient and they voiced understanding discharge instructions and agrees to treatment plan. Return precautions reviewed Differential Diagnosis Differential diagnosis: Likely fracture of rib, pneumothorax, stable angina, unstable angina pectoris, atypical chest pain, st elevation myocardial infarction, costochondritis, chest pain, biliary colic and other (Muscle spasm/strain) Discharge Plan Discharge Clinical Impression: Anterior chest wall pain Patient Disposition: Home Condition: Stable Instructions: Antibiotic Form, Chest Wall Pain (ED) Additional Instructions: I suspect you have a muscle strain of the chest wall X-ray of the left ribs was negative for any sign of fracture or malalignment. Take naproxen and baclofen as prescribed May apply lidocaine patch, Aspercreme, or blue emu to the affected area to help alleviate pain May apply heat or ice to the affected area to help alleviate pain Follow-up with your primary care doctor in 5-7 days if symptoms persist Patient Language: Nepali Prescriptions: New baclofen 10 mg tablet 10 mg PO TID 7 Days Qty: 21 0RF naproxen 500 mg tablet 500 mg PO BID PRN (Reason: pain) 7 Days Qty: 14 0RF No Action escitalopram oxalate 10 mg tablet buspirone 5 mg tablet spironolactone 100 mg tablet Follow-up/Referrals: Ankur,KATE Saunders [Primary Care Provider, Unknown] Time of Disposition: 16:33 Quality NIHSS Nursing Documentation ED NIHSS nursing documentation: reviewed/agree
== END 2025-09-19 16:37 | disposition home or self-care (01) ==
PROVIDERS: Emergency Provider Nurse Practitioner Family; PCP Nurse Practitioner
DX: R07.89 Other chest pain (principal); Z72.0 Tobacco use; F41.9 Anxiety disorder, unspecified; E66.01 Morbid (severe) obesity due to excess calories; Z68.32 Body mass index [BMI] 32.0-32.9, adult
CPT/HCPCS: 71100; 99213; G0463